=== PATIENT | female | born 1930 | race Caucasian/White ===

== ENCOUNTER → 2017-07-19 | Day surgery (SDC) | payer OTHER ==
--- NOTE | 2017-07-17 13:02 | MH ---
cc: Bernard Soria MD DATE OF ADMISSION: 07/19/2017 DATE OF : 1930 CHIEF COMPLAINT: An 86-year-old female with history of epiglottic cancer, had radiation therapy. She has had dysphagia. She is to undergo esophageal dilation, multiple passes soft rubber dilator. PAST MEDICAL HISTORY: Significant for epiglottic cancer, post-radiation therapy. ALLERGIES: INCLUDE SENSITIVITY TO CODEINE. PAST PROCEDURES: Colonoscopy, laryngoscopy and biopsy. MEDICATIONS: 1. Aspirin. 2. Levothyroxine. 3. Nystatin. PHYSICAL EXAMINATION: GENERAL: Well-developed, well-nourished female, in no apparent distress. HEENT: Normocephalic and atraumatic. Extraocular motions intact. External canals clear. Lips, oral mucosa and oropharynx show no lesion. Nasal exam shows no lesion. NECK: Shows no mass. CHEST: Clear to auscultation. HEART: Regular rate. ABDOMEN: Soft. EXTREMITIES: No lesions. NEUROLOGIC EXAM: Nonfocal. ASSESSMENT AND PLAN: This is an 86-year-old female with dysphagia, history of head and neck cancer, to undergo esophageal dilation, multiple passes with soft rubber dilators. Risks and benefits were discussed with the patient and her family. The risks include but not are limited to those of anesthesia, bleeding unfavorable scarring, hematoma, abscess, infection, perforation, bleeding, airway obstruction, further dysphagia, worsening dysphagia. The patient states she understands and accepts the risks of the procedure. MD FREDDY Marlow/SB , 12:47 PM , 01:01 PM
[~2017-07-19] VITALS: Ht 154.9 cm; Wt 35.4 kg
[~2017-07-19] MED LIST: ASPI1TAB57 PO; CHLORHEXIDINE GLUCONATE 2 % 1 PACK (2 CLOTHS) TOPICAL PRN; DEXAMETHASONE SOD PHOS 4 MG/ML VIAL IV ONE; LACTATED RINGER'S 1000 ML IV PRN; LEVO150T7 PO; LIDOCAINE HCL 1% PF 5 ML SYRINGE OTHER ONE; METO25TA3 PO; METOPROLOL TARTRATE 25 MG TAB PO PRN; MIRT30TA PO; POVIDONE IODINE 5% (ANTISEPSIS KIT) 4 APPLICATIONS EACH NARE PRN; PROPOFOL 200 MG/20 ML AMP IV ONE; SODIUM CHLORID 0.9% 500 ML IV PRN; VITA1000 PO
[2017-07-19 07:34] LABS: AUTOMATED NEUTROPHIL # 2.8 TH/MM3 (1.8-7.7); EOSINOPHIL # 0.1 TH/MM3 (0-0.4); EOSINOPHIL % 3.2 % (0.0-4.0); HEMATOCRIT 34.5 % (35.0-46.0); HEMOGLOBIN 11.9 GM/DL (11.6-15.3); LYMPH % 15.9 % (9.0-44.0); LYMPHOCYTE # 0.6 TH/MM3 (1.0-4.8); MEAN CELL VOLUME 89.7 FL (80.0-100.0); MEAN CORPUSCULAR HEMOGLOBIN 30.8 PG (27.0-34.0); MEAN CORPUSCULAR HGB CONC 34.4 % (32.0-36.0); MEAN PLATELET VOLUME 7.4 FL (7.0-11.0); MONO % 11.5 % (0.0-8.0); MONOCYTE # 0.5 TH/MM3 (0-0.9); NEUT % 68.4 % (16.0-70.0); PLATELET COUNT 171 TH/MM3 (150-450); RED BLOOD COUNT 3.85 MIL/MM3 (4.00-5.30); RED CELL DISTRIBUTION WIDTH 14.1 % (11.6-17.2); WHITE BLOOD COUNT 4.1 TH/MM3 (4.0-11.0)
--- NOTE | 2017-07-19 08:53 | MP ---
cc: Bernard Soria MD DATE OF OPERATION: 07/19/2017 INDICATIONS: An 86-year-old female who presents with a history of dysphagia. Ms. Olvera had epiglottic cancer. She was treated with radiation therapy. She has had tightness on swallowing. She is to undergo esophageal dilation, multiple passes soft rubber dilators. PREOPERATIVE DIAGNOSIS: Dysphagia. POSTOPERATIVE DIAGNOSIS: Dysphagia. PROCEDURE: Esophageal dilation, multiple passes soft rubber dilators. SUMMARY: The patient was brought to the operating room and placed in supine position, successfully placed under general anesthesia and prepared in the usual fashion for this procedure. Soft tissues of the head and neck were palpated. There was no mass. With the soft dilators using digital placement, the patient underwent dilation from 38 sequentially to 48-Tajik. There was no bleeding. There was only the usual normal resistance and she tolerated this well. No evidence of trauma. She was awakened and taken to recovery in stable condition. Bernard Soria MD JPM/TL , 08:36 AM , 08:52 AM
[2017-07-19 09:25] VITALS: BP 179/92; PULSE 54; RESP 20; TEMP 97.7; O2SAT 97
--- NOTE | 2017-07-19 22:16 | EKG ---
Date Performed: 07/19/2017 Time Performed: 06:53:00 PTAGE: 86 years EKG: Sinus rhythm POSSIBLE LEFT ATRIAL ENLARGEMENT ANTEROSEPTAL MYOCARDIAL INFARCTION , OF INDETERMINATE AGE ABNORMAL ECG PREVIOUS TRACING : 11/21/2002 03.46 Since the previous tracing, no significant change noted DOCTOR: Moses Fisher Interpretating Date/Time 07/19/2017 22:15:45
== END | disposition home or self-care (01) ==
LOC: HSDC 06:20
PROVIDERS: ATTEND Specialist
DX: R13.10 Dysphagia, unspecified (principal); C32.1 Malignant neoplasm of supraglottis; I10 Essential (primary) hypertension; Z92.3 Personal history of irradiation; Z79.82 Long term (current) use of aspirin; Z88.5 Allergy status to narcotic agent
CPT/HCPCS: 00320; 43450; 85025; 93005; J1100; J7120